=== PATIENT | female | born 1970 | race African-American/Black ===

== ENCOUNTER 2017-01-05 17:01 | Inpatient (IN) | payer SELFPAY ==
[2017-01-05 19:08] LABS: #Lymphocytes 1.1 thou/uL (1.20-3.40); #Monocytes 0.4 thou/uL (0.11-0.59); %Basophils 0.3 % (0.0-1.0); %Eosinophils 0.8 % (0.0-10.0); %Lymphocytes 24.8 % (21.0-51.0); %Monocytes 8.7 % (0.0-10.0); Hematocrit 17.7 % (36.0-47.0); Mean Platelet Volume 5.8 fL (7.4-10.4); Red Blood Cell (RBC) Count 2.92 mill/uL (4.20-5.40); White Blood Cell (WBC) Count 4.6 thou/uL (4.8-10.8)
[2017-01-05 19:23] LABS: Anisocytosis MODERATE=16-30 cells (100X) (0-5/hpf); Elliptocytes SLIGHT = 2-5 cells (100X) (0-1/hpf); Hypochromia MODERATE=16-30 cells (100X) (0-5/hpf); Microcytosis MODERATE=15-30 cells (100X) (0-5/hpf); Ovalocytes SLIGHT = 2-5 cells (100X) (0-1/hpf); Poikilocytosis MODERATE=16-30 cells (100X) (0-5/hpf); Polychromasia SLIGHT = 2-3 cells (100X) (0-2/hpf); Schistocytes SLIGHT = 2-5 cells (100X) (0-1/hpf); Spherocytes SLIGHT = 1-5 cells (100X) (None Seen); Target Cells MODERATE= 6-15 cells (100X) (0-1/hpf); Tear Drops SLIGHT = 2-5 cells (100X) (0-1/hpf)
[2017-01-05 19:25] LABS: Troponin I 0.024 ng/mL (< 0.028)
[2017-01-05] MEDS ORDERED: Tranexamic Acid 650 MG TAB PO SCH (19:45)
[2017-01-05] MEDS ORDERED: Acetaminophen 325 MG TAB PO PRN (19:57)
[2017-01-05] MEDS ORDERED: Ondansetron HCl/PF 4 MG/2 ML Vial IVP PRN (19:57)
--- NOTE | 2017-01-05 19:57 | PDOC.EVN ---
Event Note - Event Note Event Note: [id number] H&P Dictated 1. Hyperthyroidism 2. Palpitations + Chest pain 3. Acute anemia + Iron deficiency Plan: see orders
[2017-01-05 20:26] LABS: PTT 34.9 SEC (22.9-36.1); Prothrombin Time 15.5 SEC (12.0-14.7)
--- NOTE | 2017-01-05 22:53 | ULT ---
PELVIC ULTRASOUND: History: Vaginal bleeding. Pelvic pain. FINDINGS: The uterus is mildly prominent and heterogeneous. Uterine measurements recorded at 11.2 x 5.2 cm. The heterogeneity is consistent with uterine fibroids. There appear to be multiple fibroids with at leas t two areas of possible fibroid tumors measuring up to 5 cm each. Endometrial stripe is difficult to delineate due to the heterogeneity and the large fibroids. There m ay be thickening of the endometrial stripe measured up to 2 cm. MRI pelvis could better delineate the fibroids and endometrium if indicated. Right ovary is identified and there was a small cyst on the right ovary measuring up to 1.0 cm. The l eft ovary is noted identified. Color doppler with spectral analysis does show flow to the right ovary . IMPRESSION: 1. Enlarged heterogeneous uterus with evidence of multiple uterine fibroids. There is suggestion of e ndometrial thickening. Consider MRI pelvis to better evaluate the uterus and endometrium. 2. Left ovary is not identified. MRI could also better define the ovaries. POS: RADHA
[2017-01-05] MEDS ORDERED: Tranexamic Acid 1,000 MG in Sodium Chloride 0.9% 100 ML IVP SCH (23:00)
[2017-01-05 23:03] VITALS: BMI 31.6
[2017-01-05 23:48] LABS: Troponin I 0.026 ng/mL (< 0.028)
--- NOTE | 2017-01-06 00:31 | PDOC.EVN ---
Event Note - Event Note Event Note: 01/06/17 @ 0030: TVU with fibroid uterus, about 12cm. Possible thickened ES. Adnexa not well appreciated. Await EMB results.
--- NOTE | 2017-01-06 00:32 | CON ---
DATE OF CONSULTATION: 01/05/2017 TIME OF CONSULTATION: 2029 LOCATION: ER bed 21. REQUESTING PHYSICIAN: Hemal Stringer M.D. REASON FOR EVALUATION: Heavy menstrual bleeding. Patient was awaiting transport to bed B7 due to th e severe low hemoglobin. HISTORY OF PRESENT ILLNESS: This is a 46-year-old -[place] living 4 (history of twins x1) with 3 prior C-sections. She states that she has previously been evaluated for heavy menstrual b leeding in the past and was offered an endometrial ablation, but was not able to keep that appointmen t due to her commitments with work. She presents to the ER now with heavy menstrual bleeding with a hemoglobin of 5 and hematocrit of 17. She has had no loss of consciousness or shortness of breath or chest pain. She is being admitted to Internal Medicine due to the severely low hemoglobin. REVIEW OF SYSTEMS: Otherwise, negative unless stated in the HPI. PAST MEDICAL HISTORY: Otherwise, negative. PAST MEDICATIONS: Include control pills, but these were stopped. She had seen an LOCATION DIRECTOR [place] for [place] problem and states that her bleeding was well controlled on the pills, but she has stop ped taking them since. PAST SURGICAL HISTORY: C-sections x3. ALLERGIES: None. LABORATORY DATA: Her hemoglobin is 5. PT, PTT, and TSH is pending. Transvaginal ultrasound has bee n ordered and pending. PHYSICAL EXAMINATION: I evaluated the patient at bedside and found her in no acute distress. There was no heavy bleeding at the time that I evaluated her. Speculum examination revealed a cervix that was closed with no blood in the vagina except for small blood staining of the labia. I performed an endometrial biopsy under sterile conditions with 3 passes done. A single-tooth tenaculum was used to stabilize the cervix. Abundant tissue by endometrial Pipelle was obtained. This was sent to histol jaz/pathology as an endometrial biopsy. ASSESSMENT: This is a 46-year-old -[place] multigravida with heavy menstrual bleeding and se melinda iron deficiency anemia. PLAN: 1. Type and cross. 2. Hemodynamic monitoring per medicine. 3. Tranexamic acid 1.3 grams will be given in the ER x1. 4. 4-hours after the tranexamic acid, we will administer 25 mg of IV estrogen q.4 hours for 6 dosage s. 5. Once bleeding is stable, we can consider outpatient therapy with either an endometrial ablation, Mirena placement or continue medical management as her control pills seemed to work in the past . 6. Patient is not a smoker and has no contraindications to estrogen therapy. 7. Plan discussed with the patient as well as the admitting physician.
[2017-01-06 01:54] LABS: Troponin I 0.026 ng/mL (< 0.028)
[2017-01-06] MEDS: Estrogens, Conjugated 25 mg Vial SLOW IVP SCH ×6 (02:00→21:43)
[2017-01-06 05:02] LABS: #Eosinphils 0.1 thou/uL (0.0-0.7); #Lymphocytes 1.6 thou/uL (1.20-3.40); #Monocytes 0.4 thou/uL (0.11-0.59); #Neutrophils 1.8 thou/uL (1.40-6.50); %Basophils 0.7 % (0.0-1.0); %Eosinophils 2.1 % (0.0-10.0); %Lymphocytes 42.5 % (21.0-51.0); %Monocytes 9.1 % (0.0-10.0); Hematocrit 16.5 % (36.0-47.0); Mean Platelet Volume 5.4 fL (7.4-10.4); Red Blood Cell (RBC) Count 2.72 mill/uL (4.20-5.40); White Blood Cell (WBC) Count 3.9 thou/uL (4.8-10.8)
[2017-01-06 05:08] LABS: Anion Gap 8 mmol/L (10-20); BUN (Urea Nitrogen) 6 mg/dL (7.0-18.7); Calc. Creatinine Clearance 166 mL/min (70-130); Calcium 8.4 mg/dL (7.8-10.44); Carbon Dioxide 23 mmol/L (22-29); Chloride 111 mmol/L (98-107); Estimated GFR-MDRD Greater than 90
--- NOTE | 2017-01-06 06:03 | HP ---
CHIEF COMPLAINT: Palpitations, chest pain and fatigue. HISTORY OF PRESENT ILLNESS: The patient is a 46-year-old female with past medical history of anemia, iron deficiency, menorrhagia, heart murmur, hyperthyroidism, sickle cell trait, who came to the ED c omplaining of palpitations and chest pain. Patient . Palpitations are intermittent as well as some chest pain. Chest pain is tightness kind, mild in intensity. No aggravating factors, no relie ving factors. Denies any dyspnea. Complains of fatigue. The patient went to outside ER and p souleymane was transferred here for further evaluation. Patient denies any nausea, denies any vomiting, denies any dizziness, denies any abdominal pain. Complains of heavy menstrual cycles for the past 2 years, but her period started this Thursday. Denies any fever, denies any chills. PAST MEDICAL HISTORY: As per HPI. PAST SURGICAL HISTORY: 3 C-sections, tubal ligation. [employer] HISTORY: She is 3, para 3. Current menstrual cycle started on Thursday, uses 2-3 boxes of pads. SOCIAL HISTORY: Denies smoking, denies alcohol, denies any drugs. FAMILY HISTORY: Positive for heart problems. REVIEW OF SYSTEMS: Constitutional: Denies any fever, denies any chills. Eyes: Denies any vision p roblems. Positive for fatigue. Ears: Denies any hearing loss. Neck: Denies any neck pain. Cardi ovascular System: Positive for chest pain. Positive for palpitations. Respiratory System: Denies any dyspnea. Gastrointestinal System: Denies any nausea. Denies any vomiting. Genitourinary: Pos itive for heavy menstrual cycles. Denies dysuria. Integumentary: Denies any rash. Musculoskeletal : Denies any joint deformities. All other review of systems are reviewed and are negative. PHYSICAL EXAMINATION: CONSTITUTIONAL/VITAL SIGNS: At the time of H&P performed, blood pressure is 110/70, pulse ox 97%, af ebrile and respiratory rate is 18. GENERAL: The patient appears comfortable. HEENT: Pupils are equal, round and reactive to light. Anterior nare patent. Teeth intact. Tongue is moist. NECK: Supple. No JVD. Sclerae appears pale. Positive for goiter. CARDIOVASCULAR SYSTEM: S1 and S2 present, regular rate and rhythm. No murmurs, no rubs, no gallops. RESPIRATORY SYSTEM: No wheezing, no rhonchi. GASTROINTESTINAL: Soft and nontender. No guarding, no organomegaly, no masses felt. MUSCULOSKELETAL: No edema. CRANIAL NERVOUS SYSTEM: Awake, follows commands. Speech clear. Strength intact. INTEGUMENT: No rashes seen. PSYCHIATRIC: Mood is appropriate at this time. LABORATORY AND IMAGING DATA: At the time of H&P performed, white count 4.6, hemoglobin 5 and platele t count is 322. Troponin 0.024. BMP showed sodium 138, potassium 3.1, chloride 108, CO2 of 20, BUN of 5 and creatinine 0.73. CK-MB 0.9. EKG, no acute ST changes. TSH 0.0603. ASSESSMENT AND PLAN: The patient is a 46-year-old female. 1. Palpitations plus chest pain might be secondary to anemia, but patient has underlying hyperthyroi dism also and might be underlying etiology for goiter also. We will monitor the patient closely. Pl an to check cardiac enzymes. Plan to consult Cardiology to evaluate the patient. 2. History of anemia with anemia of chronic disease. Plan to type and cross and transfuse 2 units of packed RBCs. We will monitor hemoglobin closely. We will admit patient to IMU as currently patie nt is having significant bleeding and no blood available at this time. 3. Menorrhagia. Patient is receiving tranexamic acid in the ER. We will consult [employer] to evaluate the patient. 4. Hyperthyroidism. Plan to start patient on propranolol 20 mg t.i.d. We will monitor the patient closely. We will check free T4 also. 5. History of iron deficiency anemia. We will start p.o. iron and we will check iron studies also. The case was discussed in detail with the patient and patient's also.
--- NOTE | 2017-01-06 07:07 | PDOC.EVN ---
Event Note - Event Note Event Note: 01/06/17 @ 0705: B7 HD 0-1 check. S. Patient resting, no chest pain or SOB O. Hgb 4.7 this AM..Blood has started transfusion. EMB results pending. Vitals reviewed. TSH nl, PT.PTT ok Asessment: HMB...fibroids. Plan: 1. Transfuse per medicine 2. E2 25mg IV Q4 hours x 6..no VB now 3. Will need outpatient followup at [facility] [place] for outpatient ablation or Mirena. 4. Continue IV E2 for now. Can transition to high dose oral provera after 24 hours...MPA 20mg po BID X 2 weeks
[2017-01-06] MEDS ORDERED: FLU VACC QS2017-18 36 mo. & older 0.5 ML SYRINGE IM ONE (09:00)
--- NOTE | 2017-01-06 12:10 | PDOC.PN ---
- Subjective Encounter Start Date: 01/06/17 Encounter Start Time: 08:10 -: old records requested/rev Pt seen and examined, chart reviewed in its entirety. Admitted last night by Dr Stringer, Seen by Dr Bucio or [facility]. Pt with menorrhagia/dysfunctional uterine bleeding and presents with acute blood loss anemia, Hgb 4.7. 3 units blood ordered, only two on hand due to Abs. third unit in process form [place] or [place]. Will start with first two. Pt on E2 25mg IV q4 for 6 doses, then to po. Looks like pt will be here until tomorrow getting IV E2 compalints of left mastoid area swelling, palpable node, TM exmained No F/C, no N/V/D/c, no CP or SOB 10 point ROS performed and neg for all systems except as per HPI - Objective Resuscitation Status: FULL MAR Reviewed: Yes Vital Signs & Weight: Vital Signs (12 hours) Temp Pulse Pulse Resp BP Pulse Ox 01/06/17 11:20 98.5 F 50 L 17 108/57 L 100 01/06/17 11:06 98.6 F 63 18 129/41 L 100 01/06/17 10:18 98.0 F 60 15 103/50 L 100 01/06/17 07:55 98.4 F 60 16 100 01/06/17 07:36 98.4 F 60 16 125/56 L 01/06/17 07:28 98.8 F 62 15 101/40 L 01/06/17 07:24 54 L 15 98/36 L 01/06/17 05:13 98.5 F 55 L 16 110/49 L 100 01/06/17 04:54 98.7 F 57 L 16 109/58 L 100 I&O: 01/05/17 01/06/17 01/07/17 06:59 06:59 06:59 Intake Total 320 700 Output Total 500 Balance -180 700 Result Diagrams: 01/06/17 04:42 01/06/17 04:42 Radiology Reviewed by me: Yes EKG Reviewed by me: Yes Phys Exam - Physical Examination Constitutional: NAD HEENT: PERRLA, moist MMs, sclera anicteric posterior nasal drip wth cobblestone appearance, no fluid in middle ears Left TM scarred, but not bulgind, right TM normal. Left Superior LN enlarg Neck: no JVD, supple, full ROM Respiratory: no wheezing, no rales, no rhonchi, clear to auscultation bilateral Cardiovascular: RRR, no rub TRACY [place], 3/6 Gastrointestinal: soft, non-tender, no distention, positive bowel sounds Musculoskeletal: no edema, pulses present Neurological: non-focal, normal sensation, moves all 4 limbs Lymphatic: no nodes Psychiatric: normal affect, A&O x 3 Skin: no rash, normal turgor, cap refill <2 seconds Dx/Plan (1) Dysfunctional uterine bleeding Code(s): N93.8 - OTHER SPECIFIED ABNORMAL UTERINE AND VAGINAL BLEEDING Status : Acute Comment: on IV E2 for 24 hours, then to po. CCM. endometrial biopsy pending. Per [facility] (2) Acute blood loss anemia Code(s): D62 - ACUTE POSTHEMORRHAGIC ANEMIA Status: Acute Comment: getting 2 -3 units PRBCs. will take 10-12 hours (3) Seasonal allergies Code(s): J30.2 - OTHER SEASONAL ALLERGIC RHINITIS Status: Acute Qualifiers: Chronicity: acute Allergic rhinitis trigger: unspecified Qualified Code(s ): J30.2 - Other seasonal allergic rhinitis Comment: zyrtec and flonase ordered - Plan * .
[2017-01-06] MEDS ORDERED: Loratadine 10 MG TAB PO SCH (12:15)
[2017-01-06] MEDS ORDERED: Metoprolol Tartrate 25 MG TAB PO SCH (21:00)
[2017-01-06] MEDS: Metoprolol Tartrate 25 MG TAB PO SCH (21:43)
[2017-01-07 05:58] LABS: #Basophils 0.1 thou/uL (0.0-0.2); #Eosinphils 0.1 thou/uL (0.0-0.7); #Lymphocytes 1.4 thou/uL (1.20-3.40); #Monocytes 0.5 thou/uL (0.11-0.59); #Neutrophils 3.2 thou/uL (1.40-6.50); %Basophils 1.7 % (0.0-1.0); %Eosinophils 1.5 % (0.0-10.0); %Lymphocytes 26.8 % (21.0-51.0); Hematocrit 25.6 % (36.0-47.0); Hypochromia MODERATE=16-30 cells (100X) (0-5/hpf); Mean Platelet Volume 5.7 fL (7.4-10.4); Microcytosis SLIGHT = 6-15 cells (100X) (0-5/hpf); Red Blood Cell (RBC) Count 3.75 mill/uL (4.20-5.40); Target Cells SLIGHT = 2-5 cells (100X) (0-1/hpf); White Blood Cell (WBC) Count 5.3 thou/uL (4.8-10.8)
[2017-01-07 07:24] VITALS: BP 117/55; TEMP 98.7
[2017-01-07] MEDS: Metoprolol Tartrate 25 MG TAB PO SCH (08:31)
[2017-01-07] MEDS ORDERED: medroxyPROGESTERone Acetate 5 MG TAB PO SCH (09:00)
[2017-01-07] MEDS ORDERED: Fluticasone Propionate Nasal Spray 16 gm Bottle NASAL SCH (09:00)
--- NOTE | 2017-01-07 12:39 | DIS ---
DATE OF ADMISSION: 01/05/2017 DATE OF DISCHARGE: 01/07/2017 PRIMARY CARE PHYSICIAN: None. DISCHARGE DIAGNOSES: 1. Acute blood loss anemia. 2. Atrial tachycardia. 3. Menorrhagia. 4. Hypertension. CONSULTATIONS: Gynecology, Dr. Bucio. PROCEDURE: Endometrial biopsy with results pending. HISTORY AND PHYSICAL: Ms. Wolfe is a 46-year-old -[place] female with a history of hypertension and chronic menorrhagia with previous history of acute blood loss anemia from this. She presented to the emergency department for evaluation on 01/05/2017 with chief complaint of palpitations and some fatigue with some vague chest discomfort. In the workup, she was found to have a hemoglobin around 5 and a history of menorrhagia. Remainder of her labs looked unremarkable and we were called for admission. HOSPITAL COURSE: The patient was seen and examined. She was admitted to the intermediate care unit by Dr. Stringer and Gynecology was consulted. They saw her and performed an endometrial biopsy. Recommended intravenous estrogen q.4 hours for 24 hours and then transitioned to high-dose medroxyprogesterone acetate b.i.d. for another 14 days. She was watched overnight, 01/05/2017 to 01/06/2017. She was typed and crossmatched for blood. Repeated hemoglobin was 4.7. She tolerated the estrogen well. Overnight 01/06/2017 to 01/07/2017, she did well. Hemoglobin after transfusion of 3 units was 8.0. She was feeling much better. She was started medroxyprogesterone acetate and discharged home with outpatient follow-up with the [facility]. PHYSICAL EXAMINATION: The patient was seen and examined on the day of discharge. Discharge plan and disposition were discussed with the patient [id number] at the bedside. DISCHARGE MEDICATIONS: 1. Metoprolol tartrate 25 mg tablets, 12.5 mg p.o. b.i.d., prescription for 30 tablets, 2 refills sent. 2. Medroxyprogesterone acetate 20 mg p.o. b.i.d. Prescription sent for a 2- week supply with no refills. FOLLOWUP APPOINTMENTS: [facility] within a week. PENDING STUDIES: Endometrial biopsy results. Patient was instructed to follow up with [facility] for consideration of endometrial ablation versus placement of Mirena ring. Patient was instructed to return back to the emergency department for uncontrollable bleeding, syncope, presyncope, or chest pain. UNRULY
== END 2017-01-07 09:14 | disposition home or self-care (01) | DRG 744 ==
LOC: ERS 17:01 → IMCU/EMU 22:35
PROVIDERS: ADMIT Emergency Medicine; ATTEND Emergency Medicine
PROC: 0UDB7ZX Extraction of Endometrium, Via Natural or Artificial Opening, Diagnostic (ICD-10-PCS; principal; 2017-01-05)
PROC: 30233N1 Transfusion of Nonautologous Red Blood Cells into Peripheral Vein, Percutaneous Approach (ICD-10-PCS; 2017-01-06)
DX: N92.0 Excessive and frequent menstruation with regular cycle (principal); D62 Acute posthemorrhagic anemia; I10 Essential (primary) hypertension; J30.2 Other seasonal allergic rhinitis; N93.8 Other specified abnormal uterine and vaginal bleeding; E05.90 Thyrotoxicosis, unspecified without thyrotoxic crisis or storm; R00.0 Tachycardia, unspecified; D57.3 Sickle-cell trait
CPT/HCPCS: 36415; 36430; 76856; 80048; 84443; 84484; 85025; 85060; 85610; 85730; 86850; 86900; 86901; 86905; 86922; 88305; 93005; J1410; J7050; P9016